=== PATIENT | male | born 1980 | race Caucasian/White ===

== ENCOUNTER 2020-12-24 18:21 | Emergency (ER) | payer SELFPAY ==
[2020-12-24 18:40] VITALS: BP 151/102; PULSE 79; RESP 18; TEMP 35.9; O2SAT 99
--- NOTE | 2020-12-24 18:47 | ECG_ITS ---
Measurements Intervals [place] Rate: 88 P: PA: 0 QRS: -2 QRSD: 108 T: 11 QT: 387 QTc: 470 Interpretive Statements SINUS RHYTHM INCOMPLETE RIGHT BUNDLE BRANCH BLOCK BORDERLINE ECG Electronically Signed On 12-25-2020 6:35:41 CDT by Clarence Bustamante D.O.
--- NOTE | 2020-12-24 19:35 | ED.EXTPRO ---
HPI - Extremity Problem General Chief complaint: Extremity Problem,Nontraumatic Stated complaint: left arm pain Time Seen by Provider: 12/24/20 19:27 Source: patient and RN notes reviewed Mode of arrival: ambulatory Limitations: no limitations History of Present Illness HPI Narrative: Patient work-up this morning with aches of the left upper extremity. Patient was sleeping on the couch last night which is unusual for him then woke up to go to bed few hours prior to waking up. Patient denies any focal deficit, fever, chills, nausea, vomiting, chest pain, back pain, respiratory symptoms, trauma. Patient works for car repair. Patient denies any weakness, numbness or tingling of the left upper extremity. Related Data Allergies Allergy/AdvReac Type Severity Reaction Status Date / Time lisinopril Allergy Intermediate Verified 04/24/13 08:54 No Known Allergies Allergy Unverified 06/18/13 16:01 Review of Systems Review of Systems: Narrative: CONSTITUTIONAL: Denies fever, chills, or sweats. EYES: Denies visual changes, redness, or discharge. ENT: Denies rhinorrhea, congestion, sore throat, or otalgia. CARDIOVASCULAR: Denies chest pain, palpitations, or edema. RESPIRATORY: Denies cough or dyspnea. GASTROINTESTINAL: Denies abdominal pain, nausea, vomiting, or diarrhea. GENITOURINARY: Denies dysuria or hematuria. SKIN: Denies rash or itching. MUSCULOSKELETAL: Denies back pain, joint pain, or myalgia. NEUROLOGIC: Denies headache, numbness, or weakness. PSYCHIATRIC: Denies anxiety or depression. PMFSH Family History Family History Father Hypertension Family history of diabetes mellitus in first degree relative Mother Hypertension Grandparent Family history of heart disease in male family member before age 55 Diabetes mellitus Other Family history of malignant neoplasm of skin Social History Social History Smoking status: Former smoker Alcohol intake: current Exam Narrative: Exam Narrative: General appearance: Well-developed, well-nourished Skin: Normal color Head: Normocephalic, nontraumatic Eyes: Clear conjunctiva ENT: Oropharynx normal, ears normal, nose normal Neck: Supple, nontender Chest and respiratory: Airway patent, no respiratory distress, no accessory muscle use Heart: Regular rate/rhythm Abdomen: Soft, nontender, no organomegaly, quiet bowel sounds Vascular: Normal peripheral pulses, normal capillary refill. Musculoskeletal: Normal range of motion, nontender back, left upper extremity showed no swelling, no localized tenderness, no rash. Neurologic: Alert and oriented ?3, [employer] is normal as tested, no gross motor deficit Course Course Emergency Course: Improving Vital Signs Vital signs: Vital Signs Temperature 35.9 C L 12/24/20 18:40 Pulse Rate 79 12/24/20 18:40 Respiratory Rate 18 12/24/20 18:40 Blood Pressure 151/102 H 12/24/20 18:40 Pulse Oximetry 99 12/24/20 18:40 Temperature 35.9 C L 12/24/20 18:40 Pulse Rate 79 12/24/20 18:40 Respiratory Rate 18 12/24/20 18:40 Blood Pressure 151/102 H 12/24/20 18:40 Pulse Oximetry 99 12/24/20 18:40 Critical Care Time Critical Care Time Critical Care Time: No Discharge Plan Discharge Clinical Impression: Musculoskeletal limb pain Patient Disposition: Home, Self-Care Condition: Stable Instructions: Musculoskeletal Pain (ED) Additional Instructions: Return if symptoms are worsening , call your family physician for appointment, take Tylenol as as needed for aches and pain, continue home medications. Prescriptions: New nap
[2020-12-24] MEDS: ACETAMINOPHEN 325 MG TABLET 650 MG PO (20:26)
[2020-12-24] MEDS: IBUPROFEN 400 MG TABLET 800 MG PO (20:27)
== END 2020-12-24 20:27 | disposition home or self-care (01) ==
PROVIDERS: Emergency Provider Emergency Medicine
DX: M79.602 Pain in left arm (principal); Z87.891 Personal history of nicotine dependence; I45.10 Unspecified right bundle-branch block
CPT/HCPCS: 93005; 99283; A9270

== ENCOUNTER 2023-05-30 09:34 | Emergency (ER) | payer SELFPAY ==
[2023-05-30 09:56] VITALS: BP 144/87; PULSE 100; RESP 16; TEMP 36.8; O2SAT 96
--- NOTE | 2023-05-30 09:58 | ECG_ITS ---
Measurements Intervals [place] Rate: 87 P: 41 [place]: 141 QRS: 5 QRSD: 102 T: 17 QT: 360 QTc: 434 Interpretive Statements SINUS RHYTHM INCOMPLETE RIGHT BUNDLE BRANCH BLOCK [90+ ms QRS DURATION, TERMINAL R IN V1/V2, 40+ ms S IN I/aVL/V4/V5/V6] BORDERLINE ECG COMPARED TO ECG 12/24/2020 18:51:08 NO SIGNIFICANT CHANGES Electronically Signed On 05-30-2023 12:19:16 CDT by Vladimir Moore M.D.
--- NOTE | 2023-05-30 13:06 | PC.NURSE ---
Pt to intake desk and states I'm leaving. I'm not going to wait around here for 4 hours. Pt is A/O x 4, no distress, skin pwd and gait is steady
== END 2023-05-30 13:26 | disposition left against medical advice (07) ==
LOC: ANHED 13:21
PROVIDERS: Emergency Provider General Practice
DX: R31.9 Hematuria, unspecified (principal)
CPT/HCPCS: 93005; 99199